=== PATIENT | female | born 1945 | race Caucasian/White ===

== ENCOUNTER 2019-03-13 01:41 | Emergency (ER) | payer MEDICARE, OTHER, SELFPAY ==
[2019-03-13 01:52] VITALS: BP 125/60; PULSE 103; RESP 20; TEMP 36.7; O2SAT 100
--- NOTE | 2019-03-13 01:57 | ED.EXTPRO ---
HPI - Extremity Problem General Chief complaint: Extremity Problem,Nontraumatic Stated complaint: Left leg pain Time Seen by Provider: 03/13/19 01:44 Source: patient, family and EMS Mode of arrival: EMS Limitations: no limitations History of Present Illness HPI Narrative: Patient comes to the emergency department complaining left knee pain. Patient had a left knee replacement in August, which was complicated by DVT the following month. Patient was placed on Eliquis, and has had no further issues with DVTs for she knows. She continues to take Eliquis at this time. Patient states that she has been having intermittent flares of pain in the knee joint with swelling since December. She states that this seemed to start after she had a more aggressive physical therapy session. She states the pain seemed to subside somewhat, and then flared up again a few weeks ago. Patient's states that this also down and then patient had another flare up which seem to get better until tonight, when she suddenly began to have pain again. Patient denies distinct injury. She has been a little less active recently, because they have been traveling in their RV from their home in [place]. Patient also states that with the flare-ups, she does not feel as inclined to do physical activity. No other complaints at this time. No chest pain or shortness of breath. No fevers. No redness of the knee. Related Data Previous Rx's Medication Instructions Recorded tramadol 50 mg PO TID PRN #14 tab 03/13/19 Allergies Allergy/AdvReac Type Severity Reaction Status Date / Time Sulfa (Sulfonamide Allergy Verified 03/13/19 02:13 Antibiotics) Review of Systems Review of Systems ROS Unobtainable: All systems reviewed & are unremarkable except as noted in HPI and below Constitutional Denies chills, Denies fever(s), Denies lethargy and Denies weakness Eyes Denies change in vision, Denies eye discharge, Denies irritation and Denies loss of vision ENT Ears, Nose, Mouth, and Throat: Denies change in voice, Denies neck pain and Denies sore throat Cardiovascular Denies chest pain, Denies irregular heart rhythm, Denies lightheadedness, Denies palpitations, Denies dyspnea, Denies dyspnea on exertion and Denies orthopnea Respiratory Denies cough, Denies dyspnea, Denies dyspnea on exertion and Denies wheezing Gastrointestinal Gastrointestinal: Denies abdominal pain, Denies change in bowel habits, Denies diarrhea, Denies nausea and Denies vomiting Genitourinary Denies hematuria, Denies flank pain, Denies urinary incontinence and Denies urinary urgency Musculoskeletal Denies neck pain Comments: Left knee pain Integumentary/Breasts Denies pruritus, Denies erythema, Denies rash and Denies wounds Neurologic Denies confusion, Denies loss of vision and Denies weakness Psychiatric Denies anxiety, Denies confusion, Denies depression, Denies homicidal ideation and Denies suicidal ideation Endocrine Denies palpitations Hematologic/Lymphatic Denies easy bruising Allergic/Immunologic Denies wheezing [facility] Medical History DVT (deep venous thrombosis) (Acute) Surgical History History of left knee replacement (Acute) Social History Smoking Status: Never smoker Exam Initial Vital Signs Initial Vital Signs: Vital Signs Temperature 98.1 F 03/13/19 01:52 Pulse Rate 103 H 03/13/19 01:52 Respiratory Rate 20 03/13/19 01:52 Blood Pressure 125/60 03/13/19 01:52 Pulse Oximetry 100 03/13/19 01:52 Const General: cooperative and well developed Nutritional Appearance: well nourished Orientation: alert, awake, oriented x3 and not confused Other: Patient is a wincing and appears uncomfortable. [facility] Head: normocephalic and atraumatic Ears: external ears normal and TM's normal bilaterally Nose: external nose normal and No nasal discharge Face and sinus: sinuses nontender, face symmetric, no sinus tenderness and No dry mucous membranes Mouth: oral mucosae normal and moist mucous membranes Teeth and gingiva: dentition normal Throat: tonsils normal and uvula midline Eyes General: appearance normal, both eyes and all related structures Eyelids: eyelids normal Conjunctivae: conjunctivae normal Sclera: sclerae normal Pupils: PERRL EOM: EOM intact bilaterally Neck Neck: normal visual inspection, trachea midline, No lymphadenopathy, No midline deformity and No JVD Lymphatic: No lymphedema Chest Chest: normal inspection of the chest Resp Effort & Inspection: normal respiratory effort, able to speak in complete sentences, no respiratory distress and no use of accessory muscles Auscultation: clear to auscultation bilaterally, no rales, no rhonchi and no wheezes Cardio Rate: regular rate Rhythm: regular rhythm Heart Sounds: no click, no gallops, no murmurs and no rubs Pulses: normal peripheral pulses Back/Spine/Pelvis Back: No CVA tenderness Cervical Spine: cervical ROM normal and No pain with cervical ROM Thoracic/Lumbar Spine: thoracic and lumbar spine normal to inspection Skin General: no rashes or lesions noted, No jaundice and No petechiae Neuro General: alert, oriented x3, gait normal and no focal motor deficits Speech: speech normal Extrem General: full ROM, no clubbing, cyanosis or edema, no pedal edema and no calf tenderness Other: Patient's left knee is mildly edematous. There is minimal tenderness over the posterior aspect of the knee, and mild tenderness over the medial aspect of the knee. There is no significant point tenderness. Patient has flexion is limited to about 20?, secondary to pain. No calf tenderness. Psych Appearance: well kempt Mental Status: mental status grossly normal Attitude: cooperative Thought Content: normal and suicidality Judgment: judgment good Course Course Narrative: The patient seemed to be in discomfort. She was given IM analgesia for this, with apparent improvement in symptoms. There is no evidence of emergent condition causing her pain, and I felt she was stable for discharge home. We have discussed follow-up, which she already has scheduled, as well as the usual indications for return. Orders Ordered: Discontinued Medications Hydromorphone HCl (Dilaudid) 1 mg IM NOW ONE Stop: 03/13/19 01:57 Last Admin: 03/13/19 02:14 Dose: 1 mg Ketorolac Tromethamine (Toradol) 60 mg IM NOW ONE Stop: 03/13/19 01:57 Last Admin: 03/13/19 02:14 Dose: 60 mg Vital Signs - 8 hr 03/13/19 01:52 Temperature 98.1 F Pulse Rate 103 H Respiratory Rate 20 Blood Pressure 125/60 Pulse Oximetry 100 MDM - Extremity (Nontraumatic) Medical Records Attestation: I reviewed the patient's medical records. Discharge Plan Departure Patient Disposition: Home Clinical Impression: Intermittent knee pain Discharge Date/Time: 03/13/19 02:55 Interventions: ED Discharge Assessment Last Done: 03/13/19 03:02 Instructions: DI for Knee Pain Activity Restrictions/Additional Instructions: Your knee x-rays do not show any displacement of the hardware or obvious fracture. It is not clear why you continue to have repeated episodes of pain and inflammation. Please follow-up with your orthopedic office, as you have planned to do on March 18. Take the pain medication, as needed. You may also use ice to help with inflammation. Prescriptions: New tramadol 50 mg tablet 50 mg PO TID PRN (Reason: pain) Qty: 14 RF: 0
--- NOTE | 2019-03-13 02:08 | DI.RAD.S_ITS ---
PROCEDURE: XR KNEE LT 3V INDICATIONS: pain post knee-replacement TECHNIQUE: 3 views of the knee were acquired. COMPARISON: None. FINDINGS: Bones: Postsurgical changes compatible with left knee total arthroplasty are noted. A lucency at the bone hardware interface. No periprosthetic fracture. Soft tissues: No joint effusion. No suspicious soft tissue calcifications. IMPRESSION: Expected postsurgical change for left knee arthroplasty. Dictated by: Jackelyn Lopez MD, PhD on 03/13/2019 at 8:53 Approved by: Jackelyn Lopez MD, PhD on 03/13/2019 at 8:54
[2019-03-13] MEDS: HYDROMORPHONE 1 MG INJ IM (02:14)
[2019-03-13] MEDS: KETOROLAC 60 MG/2 ML VIAL IM (02:14)
[2019-03-13 02:45] VITALS: PULSE 100
[2019-03-13 03:02] VITALS: BP 122/51; PULSE 91; RESP 16; O2SAT 96
== END 2019-03-13 02:55 | disposition home or self-care (01) ==
PROVIDERS: Emergency Provider Emergency Medicine
DX: M25.562 Pain in left knee (principal); Z79.01 Long term (current) use of anticoagulants; Z96.652 Presence of left artificial knee joint; Z86.718 Personal history of other venous thrombosis and embolism
CPT/HCPCS: 73562; 96372; 99282; 99283; J1170; J1885